=== PATIENT | female | born 1955 | race Hispanic/Latino ===

== ENCOUNTER 2025-01-29 11:53 | Emergency (ER) | payer OTHER ==
[~2025-01-29] VITALS: Ht 144.8 cm; Wt 63.5 kg
--- NOTE | 2025-01-29 12:27 | ERN ---
ED Note History of Present Illness Stated Complaint: STITCHES REMOVAL Time Seen by MD: 11:55 Dictation: PATIENT IS A 69-YEAR-OLD FEMALE HERE FOR ENCOUNTER FOR STAPLE REMOVALS. SHE HAD AN ABDOMINAL HERNIA REPAIR DONE IN [facility] ON 01/09/2025. NO FEVER NO CHILLS NO NAUSEA VOMITING. SHE STATES SHE NOW LIVES IN THE [facility] AND DOES NOT HAVE A LOCAL DOCTOR. INCISION LINE IS WELL APPROXIMATED THERE IS NO INFLAMMATION. Allergies: Coded Allergies: No Known Allergies (Unverified Allergy, Unknown, 01/29/25) Past Medical History History: Not Applicable RN Note Reviewed/Agreed w/PFSH: Yes Review of System Dictation CONSTITUTIONAL: Negative except for HPI HEAD/FACE: Negative except for HPI EENT: Negative except for HPI RESPIRATORY: Negative except for HPI GASTROINTESTINAL/ABDOMINAL: Negative except for HPI midline abdominal wall incision with michela well approximated no inflammation no swelling GENITOURINARY: Negative except for HPI MUSCULOSKELETAL: Negative except for HPI INTEGUMENTARY: Negative except for HPI NEUROLOGICAL/PSYCH: Negative except for HPI HEMATOLOGIC/LYMPHATIC: Negative except for HPI All Systems Negative, Except as noted above. 13 point review of systems assessed and all negative except for above. Initial Vital Sign VS Vital Signs Date Time Temp Pulse Resp B/P (MAP) Pulse Ox O2 Delivery O2 Flow Rate FiO2 01/29/25 12:32 97.9 54 16 153/66 99 Room Air 0 01/29/25 14:53 21 Physical Exam Dictation Vital Signs reviewed General Appearance: Alert, oriented x 3, no acute distress, well developed, nourished. 0/10 pain Head and Face: non-traumatic. Eyes: PERRL, pink conjunctivas, eyelid no trauma, anterior chamber with arcus senilis. Ears: Pinnas intact and no signs of trauma or erythema ear canals clear and no discharge TM no erythema Nose: No discharge, no bleeding. Oropharynx: Mouth normal, tongue pink, pharynx clear,no erythema, tonsils no exudates, no abscesses noted, mucous membrane moist Neck: Supple, non-tender, no thyromegaly, no masses, no JVD, no bruits Breast:Deferred Chest:No tenderness, no crepitus, no paradoxical movement, no retractions Lungs:Clear, well-ventilated, symmetric, no rales, no wheezing, no rhonchi, no stridor, good breath sounds bilaterally Heart: Regular rate, regular rhythm, no murmur, no gallops Vascular: no peripheral edema, Abdomen: Soft, positive bowel sounds, nondistended, no guarding, nontender, no rebound, no masses no hepatomegaly, no splenomegaly, no Adair's sign, no hernias. Midline abdominal incision with michela well approximated no inflammation no erythema no swelling Rectal: Deferred Genital: Deferred Neurological: Normal speech, motor function intact, sensory function intact Musculoskeletal: Neck nontender, full range of motion, back nontender, full range of motion, Extremities: nontender, full range of motion Skin: Color pink, dry, no turgor, no rash, no lacerations, no abrasions, no contusions. Lymphatic: Deferred Results (Laboratory/Radiology) Labs Reviewed?: Yes ED Course ED Course Vital Signs Date Time Temp Pulse Resp B/P (MAP) Pulse Ox O2 Delivery O2 Flow Rate FiO2 01/29/25 14:53 97.9 56 16 147/65 99 Room Air* 0 21 01/29/25 12:32 97.9 54 16 153/66 99 Room Air 0 Medical Decision Making MDM Medical discharge making based on removal of michela Incision line was reinforced with tincture of benzoin and Steri-Strips Patient referred back to her doctor at the [facility] for management Procedure Procedure Dictation: 1430/procedure explained to patient she agreed to proceed Patient had midline abdominal incision well approximated without inflammation or swelling 23 michela removed by DATA COORDINATOR Incision line well approximated Tincture of benzoin with Steri-Strips applied Patient tolerated well DX & DISP Disposition: Discharge Departure Impression: Primary Impression: Encounter for removal of michela Condition: Stable Additional Instructions: Follow-up with primary care provider in 1 to 2 days. Take medications as directed here in the emergency room. Okay to continue home medications unless otherwise discussed during your visit in the emergency room today. Return to your nearest emergency room if symptoms worsen or if there is no improvement. Call 911 if you need immediate assistance. Take Tylenol or Motrin [id number] as needed and if no contraindications are present. Increase oral hydration. A wound culture or urine culture was ordered here in the emergency room department please follow-up with primary care provider and advise them to get repeat ports from our facility. If you had any Endy wrap/splints that were applied here, please do not remove them until you see your primary care or specialty. Keep wound clean and dry, follow up with your doctor at [facility] for manage Time of Disposition: 14:44 I have reviewed the case, and I agree with, Diagnosis and Plan I performed the substantive portion of the visit. I have reviewed and personally made and approve the management plan that is documented in the notes by myself or the SARIKA. I acknowledge full responsibility for the patient's management plan. MARIA ESTHER MAYORGA NP Jan 29, 2025 12:27 CHALO RAMIREZ MD Jan 29, 2025 18:38
[2025-01-29 14:53] VITALS: BP 147/65; PULSE 56; RESP 16; TEMP 97.9; O2SAT 99
== END 2025-01-29 14:54 | disposition home or self-care (01) ==
LOC: EDH 11:53
DX: Z48.815 Encounter for surgical aftercare following surgery on the digestive system (principal); Z48.02 Encounter for removal of sutures
CPT/HCPCS: 99281